=== PATIENT | male | born 1965 | race Caucasian/White ===

== ENCOUNTER → 2025-03-28 09:42 | Outpatient (CLI) | payer OTHER, SELFPAY ==
--- NOTE | 2025-03-28 09:48 | DI.MRI.S_ITS ---
PROCEDURE: MR ELBOW LT W CON INDICATIONS: Concern for distal biceps tendon rupture TECHNIQUE: Noncontrast coronal proton density fast spin echo and T2 fast spin echo with fat saturation, axial and sagittal T1 spin echo and T2 fast spin echo with fat saturation through the elbow. COMPARISON: None. FINDINGS: Image quality: Excellent. Lateral structures: The radial collateral collateral ligament is thickened at its lateral epicondylar insertion. The overlying common extensor tendon also appears thickened with intrasubstance T2 hyperintense signal at its lateral epicondylar insertion. Medial structures: The ulnar collateral ligament appears intact. The overlying common flexor tendon appears normal. The ulnar nerve appears normal in size and signal within the cubital tunnel. Anterior structures: There is full-thickness rupture of distal biceps tendon at its proximal radial insertion with up to 1.4 cm proximal retraction of torn tendon fibers and moderate amount of surrounding fluid and edema. Distal brachialis tendon is intact. Lacertus fibrosus is grossly intact.. The median and radial neurovascular bundles appear normal; no focal muscle atrophy to suggest nerve impingement. Posterior structures: The conjoint triceps tendon from the long and lateral heads appears intact. The medial head of the triceps tendon also appears normal, with direct muscle insertion onto the olecranon. No olecranon bursal fluid. Bone and cartilage: No bone marrow contusions or fractures. Suggestion of small osteochondral injury involving anterior aspect of trochlea. IMPRESSION: 1. Full-thickness rupture involving distal biceps tendon at its proximal radial insertion with up to 1.4 cm proximal retraction of torn tendon fibers and surrounding fluid and soft tissue edema. Distal brachialis tendon is intact. 2. Low-grade lateral epicondylitis as above. 3. No fracture or dislocation. Likely small osteochondral injury involving anterior aspect of the trochlea. Dictated by: Joo Turk M.D. on 03/28/2025 at 11:00 Approved by: Joo Turk M.D. on 03/28/2025 at 11:11
== END ==
LOC: MRI 09:47
PROVIDERS: Referring Provider Physician Assistant Surgical; Visit Provider Physician Assistant Surgical
DX: S46.212D Strain of muscle, fascia and tendon of other parts of biceps, left arm, subsequent encounter (principal); M77.12 Lateral epicondylitis, left elbow; X58.XXXD Exposure to other specified factors, subsequent encounter
CPT/HCPCS: 73221

== ENCOUNTER 2025-04-08 07:03 | Day surgery (SDC) | payer OTHER, SELFPAY ==
[2025-04-06 13:45] VITALS: BMI 25.0
[2025-04-08] VITALS (11 sets, daily range): BP systolic 147–161; BP diastolic 78–92; PULSE 84–95; RESP 12–21; TEMP 36–36.6; O2SAT 97–100
[2025-04-08] MEDS: LACTATED RINGERS 1,000 ML 42 ML IV ×2 (08:22→10:27)
[2025-04-08] MEDS: ACETAMINOPHEN 325 MG TABLET 975 MG PO (08:26)
--- NOTE | 2025-04-08 08:48 | PM.PREOP ---
Pre-operative Note COVID-19 COVID-19 status: Not tested Interval Note History & Physical reviewed/Exam performed by Physician: Yes Changes to H&P: No
--- NOTE | 2025-04-08 09:35 | SUR.OPER ---
Supine on padded OR bed, head on pillow, non operative arms secured on padded arm boards at <90 degrees abduction, operative arm on padded OR arm board, legs uncrossed, safety belt at thigh, tape over blanket over lower legs. All pressure points padded and protected. Final position approved by surgeon.
--- NOTE | 2025-04-08 11:10 | P.OP_ITS ---
Operative Date/Time/Diagnoses Date of procedure: 04/08/25 Time of procedure: 09:30 Pre-op diagnosis: left biceps tendon rupture Post-op diagnosis: same Procedure & Clinicians Procedure: left distal biceps tendon repair Same procedure(s) as scheduled: Yes Surgeon: Marbella Bales Assisted?: Yes Land Title Examiner: Nancy Jo Anesthesia Type: General Operative Notes Findings: see below Closure Type: primary Specimen(s): none sent Applied: none Estimated Blood Loss (mL): 30 Blood products transfused: none Tourniquet time (min): 76 Procedure in detail: Laterality: Left Preoperative diagnosis:?Distal biceps tendon rupture? Procedure performed:?Distal distal biceps tendon repair Postoperative diagnosis:?Same Primary Surgeon: Marbella Bales, DO Land Title Examiner:? Nancy Jo PA-C Anesthesia: General EBL:?30?ml Tourniquet:?76?minutes @ 200 mmHg Implants:?Arthrex Fiberloop and Arthrex Distal Biceps Button Indication For Surgery:?See preop H&P Operative Findings:? Distal biceps tendon tear with minimal retraction. Procedure in Detail: The patient was met in the pre-operative hold area. Consent was verified and operative extremity was signed. The patient then met with anesthesia and was brought back to the operating room. The patient was placed supine on the operating table. A general anesthetic was administered. The?operative arm was prepped and draped in the usual sterile fashion. A timeout was performed per protocol. All were in agreement and we proceeded. ?The esmarch exsanguinated the limb and the tourniquet was elevated. ? A horizontal incision was 2 cm distal from antecubital fossa.?The forearm was supinated throughout the case.? LABCN was identified and protected throughout the case. ?Dissection was brought down and crossing veins/arteries were tied and ligated. I did need to extend the incision with a proximal limb to gain better exposure to the ruptured biceps. ?The tuberosity was identified and the biceps tendon was found to be ruptured from the tuberosity. ? Xray confirmed the tuberosity and it was then prepared with an elevator, Bovie, and rongeur.? The biceps tendon was then isolated and unhealthy tissue was dissected from the tendon.? I then passed fiberloop through the button.?? The tendon was measured 6 mm.?? Utilizing fluoroscopy I identified the location for our drill hole on the radial tuberosity.? I ensured that my guidewire was aimed ulnarly then able to pass our biceps tendon button through the far cortex and flipped it and ensure that it was against the far cortex.? We then sequentially pulled our sutures docking the biceps tendon within the drill hole.? The tendon remained well reduced and the repair was strong.? Irrigation was performed. ?The wound was closed with vicryl in the fat and dermal layers, with monocryl in the skin.? Local anesthetic was injected into the surgical site. ?A sterile dressing and splint were applied. ?The patient was awakened and transitioned to the recovery room without issue. A physician's machine assistant was utilized to position the patient for retraction and for closure ? Postoperative Plan: Same day surgery discharge Splint until follow up. Sutures out at 2 weeks Complications: none
== END 2025-04-08 12:36 | disposition home or self-care (01) ==
PROVIDERS: Referring Provider Orthopaedic Surgery; Visit Provider Orthopaedic Surgery
PROC: (CPT 24341; principal; 2025-04-08 08:45)
DX: S46.212A Strain of muscle, fascia and tendon of other parts of biceps, left arm, initial encounter (principal); F17.210 Nicotine dependence, cigarettes, uncomplicated; X50.1XXA Overexertion from prolonged static or awkward postures, initial encounter
CPT/HCPCS: 24342; J0689; J1171; J1885; J2250; J2405; J2704; J3010; J7120